=== PATIENT | male | born 1965 | race Caucasian/White ===

== ENCOUNTER 2022-01-05 10:49 | Emergency (ER) | payer MEDICARE, SELFPAY ==
[2022-01-05 10:57] VITALS: BP 154/89; PULSE 61; RESP 14; TEMP 36.3
[2022-01-05 11:28] LABS: Bilirubin Negative (Negative); Blood Large (Negative); Clarity Clear (Clear); Glucose 250 mg/dL (Negative); Ketones Negative (Negative); Leukocyte Esterase Negative (Negative); Nitrite Negative (Negative); Specific Gravity >= 1.030 (1.005-1.025); Urobilinogen 0.2 EU/dL (Up TO 0.2); pH 5.5 (5-8)
--- NOTE | 2022-01-05 11:32 | DI.CT_ITS ---
Exam(s) CT RENAL COLIC WO EXAM: CT RENAL COLIC WO CLINICAL HISTORY: left flank/back pain. TECHNIQUE: Imaging Protocol: Axial computed tomography images with coronal and sagittal reformatted images were created and reviewed CONTRAST MATERIAL: Intravenous: none Oral: None COMPARISON: No exams were available for comparison FINDINGS: VISUALIZED LUNG BASES: No nodules nor pleural effusions evident. ABDOMEN: There is no ascites. LIVER: There are no obvious focal hepatic lesions evident of this noninfused study. GALLBLADDER/BILIARY: No obvious gallbladder pathology. CBD is not dilated. PANCREAS: No evidence of pancreatic mass nor dilatation of the pancreatic duct. SPLEEN: Spleen is not enlarged. No obvious intrasplenic lesions. ADRENALS: There are no significant adrenal masses. KIDNEYS:In addition to 2 punctate calculi in the left kidney there is a 4 millimeter calculus in the mid left ureter with mild dilatation of the collecting system above this level including mild hydrone phrosis. There are no calculi seen in the opposite-right kidney although there are 2 small cysts in the right kidney noted. No calculi in the urinary bladder nor at the ureterovesical junctions. No s olid renal masses. No calculi nor hydronephrosis. . ABDOMINAL AORTA: Abdominal aorta is not enlarged. LYMPH NODES: There is no retroperitoneal nor paraaortic adenopathy. ABDOMINAL WALL: There is a left inguinal hernia which contains fat. GI: There is no evidence of bowel obstruction, free air, nor abscess. PELVIS: LYMPH NODES: There is no intrapelvic nor inguinal adenopathy. GI: No evidence of appendicitis.No evidence of sigmoid diverticulitis. URINARY BLADDER: No calculi nor obvious masses evident REPRODUCTIVE: Prostate size upper normal. Calcification noted in the central-right prostate. Semina l vesicles unremarkable. No obturator adenopathy. OSSEOUS: No significant osseous lesions. IMPRESSION: 1. Main finding here is a 4 millimeter calculus in the mid left ureter with mild dilatation left jermaine ecting system above this level. 2. There also 2 punctate calculi remaining in the left kidney. There are no calculi in the right kid lucina. No calculi in the nondistended urinary bladder. Report called by myself to the ER provider. RADIATION DOSE DELIVERED: 1,449.93mGy.cm Total DLP DATA REPOSITORY: All CT scans at this facility are submitted to the National Radiology Data Registry (NRDR) Dose Index Registry (DIR) with the [employer] (ACR). RADIATION OPTIMIZATION: All CT scans at this facility use at least one of these dose optimization te chniques: automated exposure control; mA and/or kV adjustment per patient size (includes targeted exa ms where dose is matched to clinical indication); or iterative reconstruction.
[2022-01-05 11:43] LABS: Bacteria Few HPF (Negative); C & S Indicated? Yes; Casts Negative LPF (Negative); Crystals Negative HPF (Negative); Epithelial Cells Few HPF (Negative); Mucus Moderate (Negative); RBC 20-50 HPF (0-2)
[2022-01-05] MEDS: Ketorolac 15 MG/ML VIAL IVP (11:53)
[2022-01-05 11:56] LABS: Abs Immature Grans 0.03 10^3/uL (0.0-0.06); Absolute Basophil Count 0.05 10^3/uL (0.0-0.2); Absolute Eosinophil Count 0.18 10^3/uL (0.0-0.7); Absolute Lymphocyte Count 1.95 10^3/uL (1.2-3.4); Absolute Monocyte Count 0.73 10^3/uL (0.1-0.8); Absolute Neutrophil Count 5.77 10^3/uL (1.2-6.7); Basophils % 0.6; Eosinophils % 2.1; HCT 45.9 % (40.0-50.0); HGB 15.4 g/dL (13.5-17.5); Immature Grans % 0.3; Lymphocytes % 22.4; MCH 31.6 pg (27.0-33.0); MCHC 33.6 % (32.0-36.0); MCV 94 fL (80-95); MPV 9.3 fL (8.0-11.0); Monocytes % 8.4; Neutrophils % 66.2; Platelet Count 200 10^3/uL (130-400); RBC 4.87 10^6/uL (4.36-5.78); RDW 11.9 % (11.8-14.1); RDW-SD 41.1 fL; WBC 8.71 10^3/uL (4.4-10.8)
--- NOTE | 2022-01-05 12:02 | ED.GENADUL_ITS ---
Discharge Plan Disposition Patient Disposition: HOME Condition: Stable Discharge Details Clinical Impression: Left ureteral calculus Primary Care Provider: None,None ED Provider: Nelson Farrell Home Meds and New Rx's Prescriptions: New tamsulosin [Flomax] 0.4 mg capsule 0.4 mg PO QHS Qty: 14 0RF diclofenac potassium 50 mg tablet 50 mg PO TID PRN (Reason: pain) Qty: 14 0RF Discharge Instructions Instructions: Kidney Stones (ED) Additional Instructions: It is very important that you stay well-hydrated and recommended to drink 3 L of fluid daily. Due to the medication you received in the emergency department please do not take prescription pain medication until 6 PM or later this evening. In the meantime you may also take acetaminophen/Tylenol as needed for discomfort. Please do not take any other NSAIDs while on prescription medication as this could cause significant issues or GI bleed. You have been placed on a follow-up list to follow-up with the urology office and it is normal for them to have you wait 1 to 2 weeks before being seen due to most people passing kidney stones without intervention. If you have any new or significant worsening of symptoms such as persistent severe pain, nausea vomiting, fever chills, or urinary issues return immediately to the emergency department for reassessment Referrals: [facility] [Provider Group] - 2 weeks Discharge Data Discharge Date/Time-TO BE ENTERED AT DEPARTURE: 01/05/22 15:02 Medical Decision Making Patient presenting to the emergency department chief complaint of left back and flank pain. Patient does state increased yard work before pain started. Patie nt otherwise denies any other trauma or injury. He does state history of stage 1 renal disfunction. Physical exam is unremarkable, no CVA tenderness, no reproducible tenderness, straight leg raise is negative, intact DTRs bilateral, no numbness tingling or signs of emergent back pain. Given patient's report of dark urine along with history of renal dysfunction we will plan on checking labs and urinalysis and renal colic CT. Pending results we will give patient tordol. Review of urine shows significant amount of blood but otherwise appears noninfected, CBC is unremarkable, CMP does show slight increase of BUN and creatinine along with GFR 52. We do not have any previous records to show patient's baseline but I assume that this is near patient's normal given his history of stage I renal dysfunction. Labs are otherwise nondiagnostic. Review of CT scan along with speaking with radiologist shows a 3 to 4 mm stone in the left ureter with some intrarenal stones as well. No other worrisome or emergent findings were noted. Patient is agreeable to following up with our urologist here given that he is traveling back and forth from [place] to take care of his mother. Patient placed on Flomax and NSAIDs for discomfort and return and follow-up precautions were discussed Imaging Data Radiologic Study: Radiologist's impression: IMPRESSION: 1. Main finding here is a 4 millimeter calculus in the mid left ureter with mild dilatation left collecting system above this level. 2. There also 2 punctate calculi remaining in the left kidney. There are no calculi in the right kidney. No calculi in the nondistended urinary bladder. HPI General Mode of arrival: ambulatory . Date/Time Provider Initiated Documentation: 01/05/22 11:01 . Limitations to Documentation: no limitations . Information obtained by: patient and RN notes reviewed . History of Present Illness 56 year old M presents to the emergency department with the chief complaint of back pain, described as moderate, with intensity rated at 7. Quality is described as aching, and is localized to the back and left. Patient reports no radiation. Patient started experiencing this day(s) (3) and it has been intermittent. No relieving factors improve symptom(s), No exacerbating factors reported . Patient notes nausea/vomiting (Nausea secondary to pain). Patient did receive the following treatments prior to arrival, NSAID Related Data Home Medications Medication Instructions Recorded Confirmed diclofenac potassium 50 mg tablet 50 mg PO TID PRN pain #14 tabs 01/05/22 tamsulosin 0.4 mg capsule (Flomax) 0.4 mg PO QHS #14 caps 01/05/22 Previous Rx's Medication Instructions Recorded diclofenac potassium 50 mg tablet 50 mg PO TID PRN pain #14 tabs 01/05/22 tamsulosin 0.4 mg capsule (Flomax) 0.4 mg PO QHS #14 caps 01/05/22 Allergies Allergy/AdvReac Type Severity Reaction Status Date / Time poison ana maría extract Allergy Unverified 01/05/22 11:02 General Stated Complaint: Nk/Back Pain DAMIEN: 4 Review of Systems Constitutional Constitutional: Denies chills and Denies fever(s) Cardiovascular Cardiovascular: Denies chest pain and Denies dyspnea on exertion Respiratory Respiratory: Denies cough and Denies dyspnea on exertion Gastrointestinal Gastrointestinal: Denies abdominal pain, Denies change in bowel habits, Denies diarrhea, Reports nausea and Denies vomiting Genitourinary Genitourinary: Denies oliguria, Denies difficulty urinating, Reports flank pain, Denies urinary incontinence and Reports other (Dark urine) Musculoskeletal Musculoskeletal: Reports as per HPI and Reports back pain Neurologic Neurologic: Denies sensory deficit PFSH All Active Problems (Updated 01/05/22 @ 12:42 by Nelson Farrell NP) Left ureteral calculus (Acute) Social History Smoking/Tobacco Use Status: Never Smoking risk assessment performed?: Yes Alcohol Intake: current Alcohol Intake frequency: holidays/special occasions only Substance use type: does not use Do you feel safe at home: Yes Do you feel safe in your relationship?: Yes Exam Const General: cooperative and no acute distress Orientation: alert, awake and oriented x3 Resp Effort & Inspection: normal respiratory effort and able to speak in complete sentences Auscultation: clear to auscultation bilaterally Cardio Rate: regular rate Rhythm: regular rhythm Heart Sounds: S1 normal and S2 normal GI Palpation: nontender Back/Spine/Pelvis Back: no CVA tenderness Thoracic/Lumbar Spine: thoracic and lumbar spine normal to inspection, thoraco- lumbar ROM normal and No paraspinal tenderness Neuro General: patient alert, patient awake and patient oriented x3 Extrem General: capillary refill normal Course Vital Signs Vital signs: Vital Signs Temperature 36.3 C L 01/05/22 10:57 Pulse 61 01/05/22 10:57 Respiratory Rate 14 01/05/22 10:57 Blood Pressure 154/89 H 01/05/22 10:57 Temperature 36.3 C L 01/05/22 10:57 Temperature Source Tympanic 01/05/22 10:57 Pulse 61 01/05/22 10:57 Respiratory Rate 14 01/05/22 10:57 Respiratory Effort 01/05/22 11:05 Blood Pressure 154/89 H 01/05/22 10:57 Blood Pressure Position Sitting 01/05/22 10:57 Oxygen Delivery Method Room Air 01/05/22 10:57 Oxygen Flow Rate 0 01/05/22 10:57 Pain Level 7 01/05/22 10:57 Lab/Test Results Lab/Test Results: 01/05/22 11:19 Urine - Reflex from Ua Urine Culture - Pending Laboratory Tests Range/Units 01/05/22 01/05/22 11:19 11:46 WBC (4.4-10.8) 10^3/uL 8.71 RBC (4.36-5.78) 10^6/uL 4.87 Hgb (13.5-17.5) g/dL 15.4 Hct (40.0-50.0) % 45.9 MCV (80-95) fL 94 MCH (27.0-33.0) pg 31.6 MCHC (32.0-36.0) % 33.6 RDW (11.8-14.1) % 11.9 Plt Count (130-400) 10^3/uL 200 MPV (8.0-11.0) fL 9.3 Immature Gran % 0.3 Neutrophils % 66.2 Lymphocytes % 22.4 Monocytes % 8.4 Eosinophils % 2.1 Basophils % 0.6 Nucleated RBC % (0.0-0.3) % 0.0 Absolute Neutrophils (1.2-6.7) 10^3/uL 5.77 Absolute Lymphocytes (1.2-3.4) 10^3/uL 1.95 Absolute Monocytes (0.1-0.8) 10^3/uL 0.73 Absolute Eosinophils (0.0-0.7) 10^3/uL 0.18 Absolute Basophils (0.0-0.2) 10^3/uL 0.05 Urine Color (Yellow) Yellow Urine Clarity (Clear) Clear Urine pH (5-8) 5.5 Ur Specific [place] (1.005-1.025) >= 1.030 H Urine Protein (Negative) mg/dL Trace H Urine Ketones (Negative) mg/dL Negative Urine Blood (Negative) Large H Urine Nitrite (Negative) Negative Urine Bilirubin (Negative) Negative Urine Urobilinogen (Up TO 0.2) EU/dL 0.2 Ur Leukocyte Esterase (Negative) Negative Urine RBC (0-2) HPF 20-50 H Urine WBC (0-5) HPF 5-10 Ur Epithelial Cells (Negative) HPF Few Urine Crystals (Negative) HPF Negative Urine Bacteria (Negative) HPF Few Urine Casts (Negative) LPF Negative Urine Mucus (Negative) Moderate Ur Culture Indicated? Yes Urine Glucose (Negative) mg/dL 250 H
[2022-01-05 12:07] LABS: ALT 35 U/L (16-63); AST 19 U/L (15-37); Albumin 3.5 g/dL (3.4-5.0); Alkaline Phosphatase 171 U/L (46-116); Anion Gap 7.4 mmol/L (3-11); BUN 19 mg/dL (7-18); Bilirubin, Total 0.6 mg/dL (0.2-1.0); CO2 27.6 mmol/L (21.0-32.0); CREATININE 1.4 mg/dL (0.70-1.30); Calcium 8.5 mg/dL (8.5-10.1); Chloride 102 mmol/L (98-107); Estimated GFR 52.42 (mL/min/1.73m2); Glucose 134 mg/dL (74-106); Potassium 3.7 mmol/L (3.5-5.1); Sodium 137 mmol/L (136-145); Total Protein 7.4 g/dL (6.4-8.2); Uric Acid 5.2 mg/dL (3.5-7.2)
[2022-01-05 12:55] VITALS: BP 133/68; PULSE 68; RESP 16; O2SAT 98
== END 2022-01-05 15:02 | disposition home or self-care (01) ==
PROVIDERS: Emergency Provider Nurse Practitioner Family
DX: N20.1 Calculus of ureter (principal)
CPT/HCPCS: 80053; 99284; 74176; 81003; 81015; 84550; 85025; 87086; J1885

== ENCOUNTER → 2022-01-21 10:39 | Outpatient (BNVA) | payer MEDICARE, SELFPAY | PROVIDERS: Visit Provider Urology | DX: N20.1 Calculus of ureter (principal) | CPT/HCPCS: 81003; 99214 ==

== ENCOUNTER 2022-10-28 13:47 | Emergency (ER) | payer MEDICARE, SELFPAY ==
[2022-10-28 13:56] VITALS: BP 124/84; PULSE 77; RESP 18; TEMP 36.2; O2SAT 98
--- NOTE | 2022-10-28 15:06 | W.ED.GENAD ---
Discharge Plan Disposition Patient Disposition: Home Discharge Details Clinical Impression: URI (upper respiratory infection) Primary Care Provider: None,None ED Provider: Linda Hudson Home Meds and New Rx's Prescriptions: New azithromycin 250 mg tablet See Rx Instructions .ROUTE .COMPLEX 6 Days Qty: 6 0RF Rx Instructions: For 250 mg dose pack: take 500 mg today (day 1), then 250 mg for 4 days (days 2-5) No Action tamsulosin [Flomax] 0.4 mg capsule 0.4 mg PO DAILY Qty: 90 4RF diclofenac potassium 50 mg tablet 50 mg PO TID PRN (Reason: pain) Qty: 14 0RF Discharge Instructions Instructions: Upper Respiratory Infection (ED) Additional Instructions: Use the albuterol inhaler as directed 1 or 2 puffs every 4-6 hours as needed. Take the antibiotic as directed. Take 2 tablets in the first day then 1 a day for the next 4 days. Please take Tylenol or Ibuprofen with food every 4-6 hours as needed for pain and swelling. Follow up with primary care provider in 3-5 days. Return to ED sooner if any worsening or concerns. Increase oral fluids. Discharge Data Discharge Date/Time-TO BE ENTERED AT DEPARTURE: 10/28/22 15:35 Medical Decision Making 57-year-old male presents to the ER with chief complaint of URI type symptoms since Monday. He reports body aches, productive cough with yellow sputum. He reports having a negative home COVID test. We will give patient albuterol inhaler and prescription for azithromycin. This text was generated using [employer] system, please disregard any oddities of phrase or misspellings. HPI General Mode of arrival: ambulatory. Date/Time Provider Initiated Documentation: 10/28/22 13:49. Limitations to Documentation: no limitations. Information obtained by: patient, RN notes reviewed and old records reviewed. HPI Narrative: 57-year-old male presents to the ER with chief complaint of URI type symptoms since Monday. He reports body aches, productive cough with yellow sputum. He reports having a negative home COVID test. He denies any chest pain nausea vomiting. Related Data Home Medications Medication Instructions Recorded Confirmed diclofenac potassium 50 mg tablet 50 mg PO TID PRN pain #14 tabs 01/05/22 01/21/22 tamsulosin 0.4 mg capsule (Flomax) 0.4 mg PO DAILY urine flow #90 caps 01/21/22 01/21/22 azithromycin 250 mg tablet See Rx Instructions PO .COMPLEX 6 10/28/22 days #6 tabs Previous Rx's Medication Instructions Recorded diclofenac potassium 50 mg tablet 50 mg PO TID PRN pain #14 tabs 01/05/22 tamsulosin 0.4 mg capsule (Flomax) 0.4 mg PO DAILY urine flow #90 caps 01/21/22 azithromycin 250 mg tablet See Rx Instructions PO .COMPLEX 6 10/28/22 days #6 tabs Allergies Allergy/AdvReac Type Severity Reaction Status Date / Time poison ana maría extract Allergy Unverified 01/21/22 10:57 General Stated Complaint: GenMedical DAMIEN: 4 Review of Systems All systems reviewed & are unremarkable except as noted in HPI and below Cardiovascular Cardiovascular: Denies chest pain and Denies dyspnea Respiratory Respiratory: Reports change in phlegm color, Reports cough and Denies dyspnea Gastrointestinal Gastrointestinal: Denies diarrhea, Denies nausea and Denies vomiting PFSH All Active Problems (Updated 10/28/22 @ 15:09 by Linda Hudson NP) URI (upper respiratory infection) (Acute) Social History Smoking/Tobacco Use Status: Never Smoking risk assessment performed?: Yes Alcohol Intake: current Alcohol Intake frequency: holidays/special occasions only Substance use type: does not use Do you feel safe at home: Yes Do you feel safe in your relationship?: Yes Exam Narrative Exam Narrative: Constitutional: Alert and oriented x3. Appears stated age. Normal body habitus. Head: Normocephalic, no trauma. Eyes: Pupils PERRL, Red reflex noted, EOM's intact. Eyelids symmetrical without lesions, discharge, or swelling. ENT: Bilateral TM's WNL, External ear normal to inspection, no mastoid TTP, swelling, or erythema, Nasal turbinates WNL, no nasal discharge. Normal dentition, Posterior pharynx WNL, no exudate. Chest: RRR, Normal S1, S2, distal pulses intact. Resp: Rhonchi bilateral bases with auscultation no wheezing. Abdomen: Soft, non-distended, Normoactive bowel sounds all 4 quads. Musculoskeletal: Normal gait, 5/5 strength to all four extremities. Skin: No suspicious rashes or lesions. Capillary refill less than 2 sec. Neurologic: Cranial nerves II-XII intact. Alert and oriented x 3. Motor: No deficits noted. Sensory: Intact bilaterally all 4 extremities. Reflexes: DTR's intact bilaterally.. Hematologic/Lymphatic: No ecchymosis, no lymphadenopathy. Course Vital Signs Vital signs: Vital Signs Temperature 36.2 C L 10/28/22 13:56 Pulse 77 10/28/22 13:56 Respiratory Rate 18 10/28/22 13:56 Blood Pressure 124/84 10/28/22 13:56 Pulse Oximetry 98 10/28/22 13:56 Temperature 36.2 C L 10/28/22 13:56 Temperature Source Tympanic 10/28/22 13:56 Pulse 77 10/28/22 13:56 Respiratory Rate 18 10/28/22 13:56 Respiratory Effort Normal 10/28/22 14:27 Respiratory Depth Normal 10/28/22 14:27 Respiratory Pattern Normal 10/28/22 14:27 Blood Pressure 124/84 10/28/22 13:56 Blood Pressure Position Standing 10/28/22 13:56 Pulse Oximetry 98 10/28/22 13:56 Oxygen Delivery Method Room Air 10/28/22 13:56 Oxygen Flow Rate 0 10/28/22 13:56 Pain Level 0 10/28/22 13:56
[2022-10-28] MEDS: Albuterol HFA 8 GM 60 PUFF INH IH (15:24)
[2022-10-28] MEDS: Inhaler, Assist Device 1 EACH MC (15:24)
== END 2022-10-28 15:35 | disposition home or self-care (01) ==
PROVIDERS: Emergency Provider Registered Nurse Emergency
DX: J06.9 Acute upper respiratory infection, unspecified (principal)
CPT/HCPCS: 94640; 99283; 99284